=== PATIENT | male | born 1995 | race Caucasian/White ===

== ENCOUNTER 2017-03-18 01:16 | Inpatient (IN) | payer BC ==
[2017-03-18] MEDS ORDERED: NS 1,000 ML IV ONE (01:21)
[2017-03-18] MEDS ORDERED: ONDANSETRON 4 MG/2 ML VIAL IVP ONE ×2 (01:21→10:35)
--- NOTE | 2017-03-18 01:21 | EDPHY ---
H & P HPI/ROS: HPI CHIEF COMPLAINT: Alcohol intoxication, unresponsive, possible head injury, vomiting HISTORY OF PRESENT ILLNESS: This patient 21-year-old male who presents emergency room by private vehicle with his friends who carried him in. He presents unresponsive. Does not respond to any painful or verbal stimuli. His friends report he drank 14 shots of alcohol prior to arrival. He now presents with dry heaving and gurgling secretions. Additionally he did vomit once into his mouth. After arrival I did assess him. He is not protecting his airway. He is unresponsive. GCS of 3. Gurgling a gagging secretions. Do to this patient has been moved to ER room 1 for airway protection. It is also additionally reported there is possible head injury/head trauma from a possible fall. Past Medical History: Unknown medical history Past Surgical History: Unknown surgical Social History: [employer] student Family History: Unknown ROS REVIEW OF SYSTEMS: A comprehensive 10 point review of systems is otherwise negative aside from elements mentioned in the history of present illness. Exam Constitutional unresponsive, smells of alcohol Eyes dysconjugate gaze, 3 mm equal HENT normal inspection, atraumatic, moist mucus membranes, no epistaxis, neck supple/ no meningismus, no raccoon eyes. Respiratory clear to auscultation bilaterally, normal breath sounds, no respiratory distress, no wheezing. Cardiovascular rate normal, regular rhythm, no murmur, no edema, distal pulses normal. Gastrointestinal gurgling secretions, gagging, soft, non-tender, no rebound, no guarding, normal bowel sounds, no distension, no pulsatile mass. Genitourinary no CVA tenderness. Musculoskeletal no midline vertebral tenderness, full range of motion, no calf swelling, no tenderness of extremities, no meningismus, good pulses, neurovascularly intact. Skin pink, warm, & dry, no rash, skin atraumatic. Neurologic unresponsive. Heme/Lymph/Immune no lymphadenopathy. Differential Diagnosis: Includes but is not limited to in a particular order acute alcohol intoxication, alcohol overdose, substance overdose, failure to protect Airway. Medical Decision Making: Plan for this patient due the patient being unresponsive GCS of 3 gagging and vomiting secretions not protecting airway will need to be emergently intubated for airway protection. After that will proceed with CT scan head and neck for trauma, chest x-ray for endotracheal tube placement. Blood work IV fluids IV Zofran and admission to the ICU. Re-evaluation: 0136AM: This patient was intubated by myself with direct laryngoscopy. RSI medications were used. 20 of etomidate and 100 mg succinylcholine. A 7.5 endotracheal tube was passed directly through the cords. There were no complications. Endotracheal tube confirmation was confirmed with capnography for change, humidified air in the tube, chest x-ray placement. ED x-ray chest one view: Endotracheal tube in place. No pneumothorax. Image interpreted myself. 0248AM: Patient's CT scan head and neck are negative for acute trauma. Patient 's alcohol level is over 400. Remains intubated. Sedated. He will go to the ICU and then hopefully be extubated in the morning as his acute alcohol intoxication wears off. At this time is hemodynamically stable no acute distress. 0258AM: Serum alcohol 400+. Critical Care: Total Critical Care Time Spent Managing this Patient: 45Minutes. This time was spent Exclusively with this patient. This Care was exclusive of procedures. The Organ System/life at risk was respiratory failure This Patient was in Critical Condition because respiratory failure due to acute alcohol intoxication. Source: Patient Constitutional: Initial Vital Signs Temperature (C) 36.3 C 03/18/17 01:40 Heart Rate 99 03/18/17 01:40 Respiratory Rate 14 03/18/17 01:40 Blood Pressure 140/90 H 03/18/17 01:40 O2 Sat (%) 100 03/18/17 01:40 O2 Delivery Mode Ventilator,Humidified Allergies/Adverse Reactions: No Known Allergies Allergy (Unverified 03/18/17 08:07) Home Medications: Medication Instructions Recorded NK [No Known Home Meds] 03/18/17 Medical Decision Making - Diagnostics Imaging Results: Imaging Impressions Chest X-Ray 03/18/17 01:29 Impression: Intubation. Negative chest. - Data Points Medications Given: Discontinued Medications Enoxaparin Sodium (Lovenox) 40 mg SC DAILY COUNTS INCLUDE 234 BEDS AT THE [facility] Stop: 09/14/17 08:59 Last Admin: 03/18/17 10:19 Dose: 40 mg Etomidate (Etomidate) 20 mg IVP EDNOW ONE Stop: 03/18/17 01:30 Last Admin: 03/18/17 01:31 Dose: 20 mg Sodium Chloride (Ns) 1,000 mls @ 0 mls/hr IV EDNOW ONE; Wide Open PRN Reason: Protocol Stop: 03/18/17 01:22 Last Admin: 03/18/17 01:30 Dose: 1,000 mls Propofol (Diprivan 10 Mg/Ml (Premix)) 100 mls @ 0 mls/hr IV CONT LAUREL; Titrate PRN Reason: Protocol Stop: 09/14/17 02:59 Last Admin: 03/18/17 03:05 Dose: 100 mls Propofol (Diprivan 10 Mg/Ml (Premix)) 100 mls @ 0 mls/hr IV CONT LAUREL; Titrate PRN Reason: Protocol Stop: 09/14/17 03:29 Last Admin: 03/18/17 08:08 Dose: 100 mls Ondansetron HCl (Zofran) 4 mg IVP EDNOW ONE Stop: 03/18/17 01:22 Last Admin: 03/18/17 02:10 Dose: 4 mg Ondansetron HCl (Zofran) 4 mg IVP ONCE ONE Stop: 03/18/17 10:36 Last Admin: 03/18/17 10:35 Dose: 4 mg Propofol (Diprivan) 40 mg IVP EDNOW ONE Stop: 03/18/17 02:14 Last Admin: 03/18/17 02:15 Dose: 40 mg Succinylcholine Chloride (Quelicin) 100 mg IVP EDNOW ONE Stop: 03/18/17 01:30 Last Admin: 03/18/17 01:31 Dose: 100 mg Departure - Departure Disposition: [facility] In[facility] Acute Clinical Impression: Respiratory failure Qualifiers: Chronicity: acute Respiratory failure complication: hypoxia Qualified Code(s): J96.01 - Acute respiratory failure with hypoxia Alcohol intoxication Qualifiers: Complication of substance-induced condition: uncomplicated Qualified Code(s): F10.920 - Alcohol use, unspecified with intoxication, uncomplicated Condition: Fair
[2017-03-18] MEDS ORDERED: ETOMIDATE 20 MG/10 ML VIAL IVP ONE (01:29)
[2017-03-18] MEDS ORDERED: SUCCINYLCHOLINE CHLORIDE 200 MG/10 ML VIAL IVP ONE (01:29)
[2017-03-18] MEDS ORDERED: PROPOFOL/EMULSION 1,000 MG/100 ML BOTTLE IV ONE (01:45)
[2017-03-18] MEDS ORDERED: PROPOFOL 200 MG/20 ML VIAL IVP ONE (02:13)
[2017-03-18 02:19] LABS: % IMMATURE GRANULYOCYTES 0.3 % (0.0-1.1); ABSOLUTE IMMATURE GRANULOCYTES 0.03 10^3/uL (0.00-0.10); ADD DIFF? NO; ADD MORPH? NO; ADD SCAN? NO; ATYPICAL LYMPHOCYTE FLAG 0 (0-99); FRAGMENT RBC FLAG 0 (0-99); HEMATOCRIT 45.2 % (40.0-51.0); HEMOGLOBIN 15.9 g/dL (13.7-17.5); LEFT SHIFT FLG 0 (0-99); LIPEMIA HEMOLYSIS FLAG 90 (0-99); MEAN CELL HEMOGLOBIN 31.3 pg (27.9-34.1); MEAN CELL HEMOGLOBIN CONCENTR. 35.2 g/dL (32.4-36.7); MEAN PLATELET VOLUME 10.7 fL (8.7-11.7); PLATELET CLUMPS FLAG 0 (0-99); PLATELET COUNT 197 10^3/uL (150-400); RED BLOOD CELL COUNT 5.08 10^6/uL (4.40-6.38); RED CELL DISTRIBUTION WIDTH 12.2 % (11.5-15.2)
[2017-03-18 02:28] LABS: INR 1.15 (0.83-1.16); PROTIME(PATIENT) 14.7 SEC (12.0-15.0)
[2017-03-18 02:29] LABS: ANION GAP 19 mEq/L (8-16); APTT 29.3 SEC (23.0-38.0); CALCIUM 8.3 mg/dL (8.5-10.4); CARBON DIOXIDE 18 mEq/l (22-31); CHLORIDE 107 mEq/L (97-110); CREATININE 0.9 mg/dL (0.7-1.3); GLOMERULAR FILTRATION RATE > 60; GLUCOSE 83 mg/dL (70-100); POTASSIUM 3.7 mEq/L (3.5-5.2); SODIUM 144 mEq/L (134-144)
[2017-03-18 02:43] LABS: ETHANOL SERUM 437 mg/dL (0-10)
[2017-03-18 02:54] LABS: BASE EXCESS -4.8 mEq/L (-2.5-2.5); BICARBONATE 19 mEq/L (22-26); MEASURED OXYGEN SATURATION 99 % (92-95); PCO2 35 mmHg (34-38); PO2 159 mmHg (65-75); TCO2 20 mEq/L (23-27)
[2017-03-18 02:55] LABS: O2 CONCENTRATIION 40 % (0-100); P/F RATIO 398 RATIO; PATIENT RATE 17; SIMV YES
[2017-03-18 02:56] LABS: PRESSURE SUPPORT 7
[2017-03-18] MEDS ORDERED: PROPOFOL/EMULSION 100 ML IV SCH ×2 (03:00→03:30)
[2017-03-18] MEDS ORDERED: LORazepam 2 MG/ML INJ IVP PRN (03:11)
--- NOTE | 2017-03-18 05:34 | PDGENHP ---
History and Physical - Chief Complaint Somnolence - History of Present Illness 21 yo M brought to ED by friends after found unconscious. Per ED, friends state that he had over 20 hots of liquor earlier in the day. BAL >400 on arrival. He was intubated in the ED for inability to protect airway and manage secretions. Patient intubated and sedated with no one at bedside to provide additional history at the time of my evaluation. Father called and notified of patient's status, he did no have anything to add. History Information - Allergies/Home Medication List Allergies/Adverse Reactions: Unable to Assess Allergy (Unverified 03/18/17 01:31) Home Medications: NK [No Known Home Meds] 03/18/17 [Last Taken Unknown] I have personally reviewed and updated: medical history - Past Medical History no pertinent PMH - Family History Additional family history: Unable to obtain - Social History Smoking Status: Never smoked Review of Systems Review of Systems: Unable to obtain due to somnolence Physical Exam Temp Pulse Resp BP Pulse Ox 36.3 C 84 15 117/66 98 03/18/17 01:40 03/18/17 03:10 03/18/17 03:10 03/18/17 03:03 03/18/17 03:10 FIO2 (%) 40 Constitutional: other (Sedated, moving all extremities) Eyes: PERRL, No icteric sclera Ears, Nose, Mouth, Throat: moist mucous membranes, no oral mucosal ulcers Cardiovascular: regular rate and rhythym, no murmur, rub, or gallop Respiratory: no respiratory distress, clear to auscultation Gastrointestinal: normoactive bowel sounds, No distension Skin: warm, no rashes or abrasions Neurologic: other (Sedated, intubated) Psychiatric: encephalopathic Lab Data & Imaging Review 03/18/17 02:00 03/18/17 02:00 WBC 9.30 10^3/uL (3.80-9.50) 03/18/17 02:00 RBC 5.08 10^6/uL (4.40-6.38) 03/18/17 02:00 Hgb 15.9 g/dL (13.7-17.5) 03/18/17 02:00 Hct 45.2 % (40.0-51.0) 03/18/17 02:00 MCV 89.0 fL (81.5-99.8) 03/18/17 02:00 MCH 31.3 pg (27.9-34.1) 03/18/17 02:00 MCHC 35.2 g/dL (32.4-36.7) 03/18/17 02:00 RDW 12.2 % (11.5-15.2) 03/18/17 02:00 Plt Count 197 10^3/uL (150-400) 03/18/17 02:00 MPV 10.7 fL (8.7-11.7) 03/18/17 02:00 Neut % (Auto) 49.3 % (39.3-74.2) 03/18/17 02:00 Lymph % (Auto) 37.3 % (15.0-45.0) 03/18/17 02:00 [place] % (Auto) 11.3 % (4.5-13.0) 03/18/17 02:00 Eos % (Auto) 1.5 % (0.6-7.6) 03/18/17 02:00 Baso % (Auto) 0.3 % (0.3-1.7) 03/18/17 02:00 Nucleat RBC Rel Count 0.0 % (0.0-0.2) 03/18/17 02:00 Absolute Neuts (auto) 4.58 10^3/uL (1.70-6.50) 03/18/17 02:00 Absolute Lymphs (auto) 3.47 10^3/uL (1.00-3.00) H 03/18/17 02:00 Absolute Monos (auto) 1.05 10^3/uL (0.30-0.80) H 03/18/17 02:00 Absolute Eos (auto) 0.14 10^3/uL (0.03-0.40) 03/18/17 02:00 Absolute Basos (auto) 0.03 10^3/uL (0.02-0.10) 03/18/17 02:00 Absolute Nucleated RBC 0.00 10^3/uL (0-0.01) 03/18/17 02:00 Immature Gran % 0.3 % (0.0-1.1) 03/18/17 02:00 Immature Gran # 0.03 10^3/uL (0.00-0.10) 03/18/17 02:00 PT 14.7 SEC (12.0-15.0) 03/18/17 02:00 INR 1.15 (0.83-1.16) 03/18/17 02:00 APTT 29.3 SEC (23.0-38.0) 03/18/17 02:00 Puncture Site NONE GIVEN 03/18/17 02:30 Patient Temperature 37.0 DEGREES 03/18/17 02:30 pCO2 35 mmHg (34-38) 03/18/17 02:30 pO2 159 mmHg (65-75) H 03/18/17 02:30 Total CO2 20 mEq/L (23-27) L 03/18/17 02:30 ABG pH 7.36 (7.35-7.45) 03/18/17 02:30 ABG PO2/FiO2 Ratio 398 RATIO 03/18/17 02:30 ABG HCO3 19 mEq/L (22-26) L 03/18/17 02:30 ABG O2 Saturation 99 % (92-95) H 03/18/17 02:30 ABG Base Excess -4.8 mEq/L (-2.5-2.5) L 03/18/17 02:30 O2 Concentration % 40 % (0-100) 03/18/17 02:30 Actual Respiration Rate 17 03/18/17 02:30 Set Respiration Rate 15 03/18/17 02:30 SIMV YES 03/18/17 02:30 Tidal Volume 550 03/18/17 02:30 PEEP 5 03/18/17 02:30 Pressure Support 7 03/18/17 02:30 Sodium 144 mEq/L (134-144) 03/18/17 02:00 Potassium 3.7 mEq/L (3.5-5.2) 03/18/17 02:00 Chloride 107 mEq/L (97-110) 03/18/17 02:00 Carbon Dioxide 18 mEq/l (22-31) L 03/18/17 02:00 Anion Gap 19 mEq/L (8-16) H 03/18/17 02:00 BUN 10 mg/dL (7-23) 03/18/17 02:00 Creatinine 0.9 mg/dL (0.7-1.3) 03/18/17 02:00 Estimated GFR > 60 03/18/17 02:00 Glucose 83 mg/dL (70-100) 03/18/17 02:00 Calcium 8.3 mg/dL (8.5-10.4) L 03/18/17 02:00 Urine Opiates Screen NEGATIVE (NEGATIVE) 03/18/17 02:15 Urine Barbiturates NEGATIVE (NEGATIVE) 03/18/17 02:15 Ur Phencyclidine Scrn NEGATIVE (NEGATIVE) 03/18/17 02:15 Ur Amphetamine Screen NEGATIVE (NEGATIVE) 03/18/17 02:15 U Benzodiazepines Scrn NEGATIVE (NEGATIVE) 03/18/17 02:15 Urine Cocaine Screen NEGATIVE (NEGATIVE) 03/18/17 02:15 U Marijuana (THC) Screen NEGATIVE (NEGATIVE) 03/18/17 02:15 Ethyl Alcohol 437 mg/dL (0-10) H* 03/18/17 02:00 Imaging Review: CT head and C-spine unremarkable. Visualized and Interpreted Chest x-ray results: Yes Chest X-Ray results: no infiltrate Assessment & Plan Assessment: 21 yo M admitted to ICU with severe intoxication requiring intubation for airway protection. Plan: 1. Acute toxic encephalopathy - Requiring intubation for airway protection. Friends report >20 shots of liquor prior to admission. BAL>400. CT head and c- spine with no acute abnormality. Laboratory work-up largely unremarkable aside from AGMA. Moving all extremities on examination. - Wean from mechanical ventilation as able 2. AGMA - Related to ETOH ingestion, monitor BMP. Diet - NPO code - Full Ppx - LMWH Dispo - Admit to ICU
[2017-03-18] MEDS ORDERED: SUCCINYLCHOLINE CHLORIDE*ANESTHESIA ONLY*200 MG/10 ML SYR IVP ONE (05:53)
[2017-03-18] MEDS ORDERED: ETOMIDATE 40 MG/20 ML INJ ONE (05:53)
[2017-03-18 06:21] LABS: % IMMATURE GRANULYOCYTES 0.2 % (0.0-1.1); ABSOLUTE IMMATURE GRANULOCYTES 0.02 10^3/uL (0.00-0.10); ADD DIFF? NO; ADD MORPH? NO; ADD SCAN? NO; ATYPICAL LYMPHOCYTE FLAG 0 (0-99); FRAGMENT RBC FLAG 10 (0-99); HEMATOCRIT 43.9 % (40.0-51.0); HEMOGLOBIN 15.6 g/dL (13.7-17.5); LEFT SHIFT FLG 0 (0-99); LIPEMIA HEMOLYSIS FLAG 90 (0-99); MEAN CELL HEMOGLOBIN 31.1 pg (27.9-34.1); MEAN CELL HEMOGLOBIN CONCENTR. 35.5 g/dL (32.4-36.7); MEAN CELL VOLUME 87.6 fL (81.5-99.8); PLATELET CLUMPS FLAG 10 (0-99); PLATELET COUNT 220 10^3/uL (150-400); RED BLOOD CELL COUNT 5.01 10^6/uL (4.40-6.38); RED CELL DISTRIBUTION WIDTH 12.3 % (11.5-15.2)
[2017-03-18 06:43] LABS: CALCIUM 8.2 mg/dL (8.5-10.4); CARBON DIOXIDE 21 mEq/l (22-31); CHLORIDE 106 mEq/L (97-110); CREATININE 0.8 mg/dL (0.7-1.3); GLOMERULAR FILTRATION RATE > 60; GLUCOSE 101 mg/dL (70-100); SODIUM 142 mEq/L (134-144)
[2017-03-18 06:53] LABS: ANION GAP 15 mEq/L (8-16)
--- NOTE | 2017-03-18 08:57 | GCON ---
[f rep st] CONSULTATION LAUNDRY PRESSER CONSULTATION REASON FOR ADMISSION: Acute alcohol intoxication, respiratory failure secondary to above. HISTORY OF PRESENT ILLNESS: The patient is a 21-year-old white male who was brought into the emerge ncy room after being found unconscious by friends. He was subsequently intubated for inability to p rotect airway and for management of secretions. He was subsequently and transferred to the intensiv e care unit. Currently, patient is still markedly somnolent. All history is gleaned from the medic al record and the patient's mother. She states he has had no prior problems with alcohol. PAST MEDICAL HISTORY: None. ALLERGIES: No known allergies to medications. SOCIAL HISTORY: No history of tobacco use. Recent excessive alcohol use. MEDICATIONS: At home none. FAMILY HISTORY: Noncontributory. PHYSICAL EXAMINATION: VITAL SIGNS: Blood pressure is 98/52, pulse is 91, respirations 15, temperat ure is 36.2, oxygen saturation is 98% on mechanical ventilation. GENERAL: He is a well-developed, well-nourished 21-year-old white male, who is obtunded and on mechanical ventilation. HEENT: Eyes are PERRLA, EOMI. Throat: Endotracheal tube is in good position. NECK: Supple. No cervical deepthi opathy. HEART: Regular rate and rhythm without murmurs, rubs, or gallops. LUNGS: Clear to auscul tation. No wheeze or rhonchi. ABDOMEN: Soft, nontender. Bowel sounds are present in all 4 quadra nts. EXTREMITIES: No clubbing, cyanosis, or edema. LABORATORY DATA: White count is 9.2, hemoglobin 15, hematocrit 43, platelet count is 220. INR is 1 .15. Arterial blood gas pH 7.36, pCO2 of 35, pO2 of 159, bicarb is 20, oxygen saturation is 99%. T his is on IMV of 15, tidal volume 550 plus 7 of pressure support plus 5 of PEEP and 40%. Sodium is 142, potassium 4.0, chloride 106, CO2 is 21, BUN is 10, creatinine 0.8, glucose is 101. Urine drug screen is negative. Alcohol level is 437. IMAGING DATA: CT scan of the head is normal. C-spine CT is negative. Chest x-ray: Interpreted by me, endotracheal tube is good position. Lungs are clear. IMPRESSION: 1. Acute alcohol intoxication. 2. Acute respiratory failure secondary to above. RECOMMENDATIONS: 1. Continue mechanical ventilation for now. 2. Will wait for his alcohol to wear off. Anticipate extubation at that time. 3. DVT and PE prophylaxis. 4. Stress ulcer prophylaxis. 5. Alcohol counseling once the patient is awake. /[id number]/MODL
[2017-03-18] MEDS ORDERED: ENOXAPARIN 40 MG/0.4 ML SYR SC SCH (09:00)
[2017-03-18] MEDS ORDERED: ONDANSETRON 4 MG/2 ML VIAL ONE (10:21)
[2017-03-18 12:16] VITALS: BP 110/48; PULSE 113; RESP 20; TEMP 97.7; O2SAT 98
--- NOTE | 2017-03-18 12:31 | ASMTCASEMG ---
Living Arrangements What is your living Answers: Unknown arrangement? Who do you live with? Type Of Residence What kind of residence do Answers: Unknown you live in? Discharge Plan Comments Coordination Status Comments Notes: Pt admitted for acute alcohol intoxication, resp failure. Pt currently intubated. Notes indicate mother and father were contacted. Chart review indicates pt is [employer] student, friends brought him in after consuming approx 20 shots of alcohol in the day, BAL was greater than 400. Pt will need ETOH counseling/resources. CM to follow. Date Signed: 03/18/2017 12:30 PM Electronically Signed By:Mayra Alegria
--- NOTE | 2017-03-18 15:04 | ASMTCMCOM ---
CM Note CM Note Notes: Pt medically stable for d/c to his apartment where he lives w roommates S/w pt \T\ mother reg'd ETO H resources. Date Signed: 03/18/2017 03:04 PM Electronically Signed By:Mayra Alegria
--- NOTE | 2017-03-18 15:09 | PDDCSUM ---
Discharge Summary Discharge Summary: DISCHARGE SUMMARY FOLLOW-UP ITEMS: Establish primary care DATE OF ADMISSION: 03/17/2017 DATE OF DISCHARGE: 03/18/2017 DISCHARGE DIAGNOSES: 1. Acute encephalopathy 2. Acute alcohol poisoning/toxicity 3. Anion gap metabolic acidosis. CONSULTATIONS: Pulmonary Critical Care PROCEDURES / IMAGING: Intubated in the emergency department CHIEF COMPLAINT: Acute unresponsiveness SUBJECTIVE: Patient is fully oriented to time of discharge, he would like to be discharged at this time PHYSICAL EXAM ON DISCHARGE: Systolic blood pressure 100, heart rate 90, satting well on room air, alert awake oriented x3, no apparent distress, flat affect LABS ON DISCHARGE: Blood alcohol level 440, tox screen negative, creatinine 0.8, white blood cell count 9300, hemoglobin 15.6, platelets [id number] HOSPITAL COURSE BY PROBLEM: 1. Acute encephalopathy. Evidenced by global brain dysfunction characterized as complete unresponsiveness, inability to communicate, all of which is an acute change from his baseline, secondary to the toxic effects of alcohol poisoning. Patient was unresponsive and he was brought to the emergency department by his friends. He was not protecting his airway in the emergency department, was subsequently intubated. He required mechanical ventilation until his alcohol was metabolized. Once he was able to mentate and breathe effectively, he was extubated safely. Patient is currently mentating at baseline time discharge. 2. Anion gap metabolic acidosis. PH was 7.36 on presentation, with an anion gap , most likely secondary to alcohol consumption. His serum bicarbonate level had normalized at time discharge, at 21. 3. Acute alcohol poisoning/toxicity. Patient's blood alcohol level was 440 on presentation, rendering a near fatal situation. Dr. Jackson and I communicated the seriousness of the situation to the patient prior to discharge, and we also offered him resources through our social work department. We recommend to the patient and his mother that he establish primary care continue the conversation regarding alcohol abuse as well as strategies for healthy living. He has no history of alcohol withdrawal, and he is safe for discharge at this time. DISCHARGE MEDICATIONS: Please see official discharge medication reconciliation sheet in chart , none. DISCHARGE INSTRUCTIONS: Please schedule follow-up with Dr. Sean Rivas as an outpatient. Please maintain sobriety. TIME SPENT: Greater than 30 minutes were spent on direct patient care, as well as discharge planning and preparation. Patient was discharged prior to the previously anticipated 48 hours by his admitting provider, secondary to highly efficient expeditious care by his nursing team, the clinical sciences professor, hospitalist, and all those involved with his care. Patient's condition has resolved faster than originally anticipated and he is safe for discharge home at this time.
== END 2017-03-18 16:21 | disposition home or self-care (01) | DRG 917 ==
LOC: F2N 02:55
PROVIDERS: ADMIT Student in an Organized Health Care Education/Training Program; ATTEND Student in an Organized Health Care Education/Training Program
DX: T51.0X1A Toxic effect of ethanol, accidental (unintentional), initial encounter (principal); G92 Toxic encephalopathy; E87.2 Acidosis; Y90.8 Blood alcohol level of 240 mg/100 ml or more
CPT/HCPCS: 80305; 96374; G0480; J0330; J1650; J2405; J2704